=== PATIENT | male | born 1975 | race Hispanic/Latino ===

== ENCOUNTER 2016-12-14 22:14 | Emergency (ER) | payer BC, OTHER ==
[2016-12-14 22:16] VITALS: BMI 31.1
[2016-12-14] MEDS ORDERED: Sodium Chloride 0.9% 1,000 ML IV STA (23:02)
[2016-12-14 23:34] LABS: BASO # 0.03 K/mm3 (0.0-2.0); BASO % 0.2 % (0.0-3.0); EOS # 0.3 (0.0-0.7); EOS % 2.4 % (1.5-5.0); GRAN # 9.18 (1.4-6.5); GRAN % 74.7 % (50.0-68.0); HEMATOCRIT 43.9 % (42.0-52.0); LYMPH % 16.2 % (22.0-35.0); MEAN CELL VOLUME 90.9 fl (80.0-105.0); MEAN CORPUSCULAR HEMOGLOBIN 31.9 pg (25.0-35.0); MEAN CORPUSCULAR HGB CONC 35.1 g/dl (31.0-37.0); MONO # 0.8 (0.1-0.6); MONO % 6.5 % (1.0-6.0); RED CELL DISTRIBUTION WIDTH 12.5 % (11.5-14.5)
[2016-12-14 23:40] LABS: ALB/GLOB RATIO 1.5 (1.1-1.8); ALKALINE PHOSPHATASE 44 U/L (38-126); ALT/SGPT 109 U/L (7-56); AST/SGOT 60 U/L (17-59); BILIRUBIN,TOTAL 0.5 mg/dL (0.2-1.3); BLOOD UREA NITROGEN 14 mg/dL (7-21); CALCIUM 9.7 mg/dL (8.4-10.5); CARBON DIOXIDE 27 mmol/L (21-33); CHLORIDE 101 mmol/L (98-107); GFR AFRICAN-AMERICAN > 60; GLUCOSE,RANDOM 105 mg/dL (70-110); POTASSIUM 4.3 mmol/L (3.6-5.0); SODIUM 142 mmol/L (132-148); TOTAL PROTEIN 8.4 g/dL (5.8-8.3)
[2016-12-14 23:43] LABS: WHITE BLOOD COUNT 12.3 10^3/ul (4.5-11.0)
--- NOTE | 2016-12-15 01:02 | ED PDOC ---
Arrival/HPI - General Historian: Patient - History of Present Illness Time/Duration: 4-6 hours - General Chief Complaint: Dizziness/Lightheaded Time Seen by Provider: 12/14/16 22:26 - History of Present Illness Narrative History of Present Illness (Text): 12/15/16 00:49 41yr old male presents today after taking vicodin. pt states he has hx of chronic back pain. pt states he was having a flare of his back pain after doing lots of work recently and today he took one vicodin at 5pm and it didnt work, so he then took another at 630pm, and then took 2 more at 730 for a total of 4 pills. pt states he then went to sleep and his woke him up.pt states he was initially feeling tired, weak and dizzy so his wanted him to come to the er. pt denies any complaints, currently. denies SI or HI. pt denies fever/ chills. denies urinary symptoms. no abdominal pain. no dizziness or weakness. no n/v/d/c. no abdominal pain. pt denies back pain at present time. no other complaints. (Yarelis Patterson) Past Medical History - Provider Review Nursing Documentation Reviewed: Yes - Travel History Have you recently traveled outside [place] w/in the past 3 mons?: No - Infectious Disease Hx of Infectious Diseases: None - Tetanus Immunization Tetanus Immunization: Unknown - Cardiac Hx Hyperlipemia: Yes - Pulmonary Hx Respiratory Disorders: No - Neurological Hx Neurological Disorder: No - HEENT Hx HEENT Disorder: No - Renal Hx Renal Disorder: No - Endocrine/Metabolic Hx Endocrine Disorders: No - Hematological/Oncological Hx Blood Disorders: No - Integumentary Hx Dermatological Disorder: No - Musculoskeletal/Rheumatological Hx Musculoskeletal Disorders: No Hx Falls: No - Gastrointestinal Hx Gastrointestinal Disorders: No - Genitourinary/Gynecological Hx Genitourinary Disorders: No - Psychiatric Hx Psychophysiologic Disorder: No Hx Substance Use: No - Surgical History Hx Orthopedic Surgery: Yes - Anesthesia Hx Anesthesia: Yes Hx Anesthesia Reactions: No Hx Malignant Hyperthermia: No Family/Social History - Physician Review Nursing Documentation Reviewed: Yes Family/Social History: Unknown Family HX Smoking Status: Never Smoked Hx Alcohol Use: Yes (SOCIAL) Frequency of alcohol use: Socially Hx Substance Use: No Allergies/Home Meds Allergies/Adverse Reactions: Allergies Penicillins Allergy (Verified 11/04/15 01:41) RASH Home Medications: Home Meds Medication Instructions Recorded Confirmed Atorvastatin [Lipitor] 10 mg PO DIN 11/04/15 12/14/16 Acetaminophen/Hydrocodone Bi 1 tab PO DAILY PRN 12/14/16 12/14/16 [Vicodin 300 mg-5 mg] Review of Systems - Review of Systems Constitutional: absent: Fatigue, Fevers Respiratory: absent: SOB, Cough Cardiovascular: absent: Chest Pain, Palpitations Gastrointestinal: absent: Abdominal Pain, Nausea, Vomiting Genitourinary Male: absent: Dysuria, Frequency, Hematuria Musculoskeletal: absent: Arthralgias, Back Pain, Neck Pain Skin: absent: Rash, Pruritis Neurological: Dizziness. absent: Headache Psychiatric: absent: Anxiety, Depression, Suicidal Ideation Physical Exam Vital Signs Reviewed: Yes Temperature: Afebrile Blood Pressure: Hypertensive Pulse: Tachycardic Respiratory Rate: Normal Appearance: Positive for: Well-Appearing, Non-Toxic, Comfortable Pain Distress: None Mental Status: Positive for: Alert and Oriented X 3 Finger Stick Blood Glucose: 115 - Systems Exam Head: Present: Atraumatic Pupils: Present: PERRL Extroacular Muscles: Present: EOMI Conjunctiva: Present: Normal Mouth: Present: Moist Mucous Membranes Neck: Present: Normal Range of Motion Respiratory/Chest: Present: Clear to Auscultation, Good Air Exchange. No: Respiratory Distress, Accessory Muscle Use Cardiovascular: Present: Peripheal Pulses Present, Tachycardic. No: Murmurs Abdomen: No: Tenderness, Distention, Rebound, Guarding Back: Present: Normal Inspection Upper Extremity: Present: Normal ROM Lower Extremity: Present: Normal ROM Neurological: Present: GCS=15, Speech Normal, Gait Normal, Memory Normal Skin: Present: Warm, Dry, Normal Color. No: Rashes Psychiatric: Present: Alert, Oriented x 3, Normal Mood. No: Depressed Mood, Suicidal Ideation, Homicidal Ideation, Delusional, Hallucinations Vital Signs Temp Pulse Resp BP Pulse Ox 12/15/16 01:32 98.0 F 99 H 17 161/104 H 100 12/14/16 22:25 97.6 F 121 H 18 152/102 H 95 Medical Decision Making ED Course and Treatment: I was available for consultation during PA evaluation. The chart was reviewed by me, and I agree with disposition. The documented history was done by the physician safety grooving machine operator. The documented physical exam was done by the physician safety grooving machine operator. The documented procedures were done by the physician safety grooving machine operator. (Leonardo Bradshaw) 12/15/16 01:03 Patient is nontoxic well-appearing in no distress . slightly tachycardic. pt is without SI or HI. denies any complaints currently. ekg; sinus tachycardiat at 114bpm no st elevations. normal axis normal intervals. 1L NS iv bolus CBC: wbc;12.3 CMP: + elevated ast,alt Tylenol wnl Salicylate: wnl Alcohol level: 48 Urine drug screen: + opiates UA: wnl cxr; wnl 12/15/16 01:14 pt feeling better; tachycardia improving; 2nd Liter NS given. 12/15/16 02:32 pt denies any complaints; vitals stable. advised f/u with pmd tomorrow. advised patient of elevated blood pressure and need for f/u with pmd. advised increase fluids. advised immediate return if symptoms worsen,persist or if new symptoms develop. impression; tachycardia, alcohol use, vicodin abuse increase fluids follow up with the primary care physician within the next 2 days return immediately if symptoms worsen,persist or if new symptoms develop. (Yarelis Patterson) - Lab Interpretations Lab Results: 12/14/16 23:10 12/14/16 23:10 Lab Results 12/15/16 01:10: Urine Opiates Screen Positive H, Urine Methadone Screen Negative , Ur Barbiturates Screen Negative, Ur Phencyclidine Scrn Negative, Ur Amphetamines Screen Negative, U Benzodiazepines Scrn Negative, U Oth Cocaine Metabols Negative, U Cannabinoids Screen Negative 12/15/16 01:10: Urine Color Yellow, Urine Appearance Sl cloudy, Urine pH 6.0, Ur Specific [place] 1.025, Urine Protein 100 H, Urine Glucose (UA) Negative, Urine Ketones Negative, Urine Blood Negative, Urine Nitrate Negative, Urine Bilirubin Negative, Urine Urobilinogen 0.2, Ur Leukocyte Esterase Negative, Urine RBC 0 - 2, Urine WBC 0 - 2, Ur Epithelial Cells 0 - 2 12/14/16 23:10: WBC 12.3 H D, RBC 4.83, Hgb 15.4, Hct 43.9, MCV 90.9, MCH 31.9, MCHC 35.1, RDW 12.5, Plt Count 235, MPV 9.0, Gran % 74.7 H, Lymph % (Auto) 16.2 L, [place] % (Auto) 6.5 H, Eos % (Auto) 2.4, Baso % (Auto) 0.2, Gran # 9.18 H, Lymph # 2.0, [place] # 0.8 H, Eos # 0.3, Baso # 0.03 12/14/16 23:10: Alcohol, Quantitative 48 H 12/14/16 23:10: Salicylates < 1 L, Acetaminophen < 10.0 L 12/14/16 23:10: Sodium 142, Potassium 4.3, Chloride 101, Carbon Dioxide 27, Anion Gap 18, BUN 14, Creatinine 1.0, Est GFR ( Amer) > 60, Est GFR (Non- Af Amer) > 60, Random Glucose 105, Calcium 9.7, Total Bilirubin 0.5, AST 60 H, ALT 109 H, Alkaline Phosphatase 44, Total Creatine Kinase 88, Total Protein 8.4 H, Albumin 5.1 H, Globulin 3.3, Albumin/Globulin Ratio 1.5 - RAD Interpretation Radiology Orders: 12/14/16 23:01 CHEST PORTABLE [RAD] Stat - Medication Orders Current Medication Orders: Discontinued Medications Sodium Chloride (Sodium Chloride 0.9%) 1,000 mls @ 999 mls/hr IV .Q1H1M STA Stop: 12/15/16 00:02 Last Admin: 12/14/16 23:24 Dose: 999 mls/hr eMAR Start Stop Document 12/14/16 23:24 OCS (Rec: 12/14/16 23:24 OCS [id number]) Intravenous Solution Start Date 12/14/16 Start Time 23:24 Sodium Chloride (Sodium Chloride 0.9%) 1,000 mls @ 999 mls/hr IV .Q1H1M STA Stop: 12/15/16 02:14 Last Admin: 12/15/16 01:25 Dose: 999 mls/hr eMAR Start Stop Document 12/15/16 01:25 OCS (Rec: 12/15/16 01:25 OCS [id number]) Intravenous Solution Start Date 12/15/16 Start Time 01:25 Disposition/Present on Arrival - Present on Arrival Any Indicators Present on Arrival: No History of DVT/PE: No History of Uncontrolled Diabetes: No Urinary Catheter: No History of Decub. Ulcer: No History Surgical Site Infection Following: None - Disposition Have Diagnosis and Disposition been Completed?: Yes Disposition Time: 02:37 Patient Plan: Discharge - Disposition Diagnosis: Tachycardia, Alcohol use, Opiate misuse Disposition: HOME/ ROUTINE Condition: GOOD Additional Instructions: increase fluids follow up with the primary care physician within the next 2 days return immediately if symptoms worsen,persist or if new symptoms develop. Referrals: Denise Olson MD [Primary Care Provider] - Follow up with primary Forms: [employer] (Bhutanese), WORK NOTE
[2016-12-15] MEDS ORDERED: Sodium Chloride 0.9% 1,000 ML IV STA (01:14)
[2016-12-15 01:26] LABS: URINE BILIRUBIN NEGATIVE (NEGATIVE); URINE BLOOD NEGATIVE (NEGATIVE); URINE GLUCOSE (UA) NEGATIVE (NEGATIVE); URINE KETONE NEGATIVE (NEGATIVE); URINE LEUKOCYTE ESTERASE NEGATIVE Leu/uL (NEGATIVE); URINE PROTEIN 100 mg/dL (<30 mg/dL); URINE UROBILINOGEN 0.2 E.U./dL (<1 E.U./dL)
[2016-12-15 01:33] VITALS: RESP 17; TEMP 98; O2SAT 100
[2016-12-15 01:35] LABS: URINE APPEARANCE SL CLOUDY (CLEAR); URINE COLOR YELLOW (YELLOW)
[2016-12-15 01:40] LABS: URINE EPITHELIAL CELLS 0 - 2 /hpf (0-5); URINE RBC 0 - 2 /hpf (0-2); URINE WBC 0 - 2 /hpf (0-6)
[2016-12-15 02:50] VITALS: BP 133/78; PULSE 93
--- NOTE | 2016-12-15 08:25 | RAD ---
HISTORY: tachycardia COMPARISON: 07/23/2013. FINDINGS: LUNGS: The lungs are well inflated and clear. PLEURA: No significant pleural effusion identified, no pneumothorax apparent. CARDIOVASCULAR: Normal. OSSEOUS STRUCTURES: No significant abnormalities. VISUALIZED UPPER ABDOMEN: Normal. OTHER FINDINGS: None. IMPRESSION: No active pulmonary disease.
--- NOTE | 2016-12-15 09:30 | CARD ---
APPROVED REPORT EKG Measurement Heart [id number] <Conclusion> Sinus tachycardia Early repolarization. No change except faster rate.
== END 2016-12-15 02:57 | disposition home or self-care (01) ==
LOC: ED 22:14
DX: R00.0 Tachycardia, unspecified (principal); F11.90 Opioid use, unspecified, uncomplicated; F10.10 Alcohol abuse, uncomplicated; Y90.2 Blood alcohol level of 40-59 mg/100 ml
CPT/HCPCS: 71010; 80053; 81001; 82550; 82948; 85025; 93005; 99285; G0480; J7040